=== PATIENT | female | born 1945 | race Caucasian/White ===

== ENCOUNTER → 2016-04-10 | Outpatient (CLI) | payer OTHER ==
[~2016-04-10] MED LIST: ACET-1311 PO; CARB0.5D OPB; CPR500 PO; HYDR-5688 PO; METH4PAK PO
--- NOTE | 2016-04-10 15:10 | DIAGNOSTIC IMAGING REPORT ---
RIGHT RIBS UNILATERAL WITH PA CHEST CLINICAL HISTORY: Right-sided rib pain. COMPARISON STUDY: Chest radiograph May 23, 2015. FINDINGS: There is no pneumothorax or pleural effusion. Lungs are clear. Cardiac size is normal. Mediastinal contours are normal. There are cholecystectomy clips. No acute right rib fractures are identified by radiography. There are several old anterior right-sided rib fractures. IMPRESSION: No pneumothorax. No acute right rib fractures. Several old anterior right-sided rib fractures. Electronically signed by: Mateo Jackson M.D. 04/10/2016 3:08 PM Dictated Date/Time: 04/10/2016 3:03 PM
[2016-04-10 18:27] LABS: URINE APPEARANCE CLEAR (CLEAR); URINE BILIRUBIN NEG (NEG); URINE COLOR YELLOW; URINE NITRITE NEG (NEG); URINE PH 6.5 (4.5-7.5); URINE SPECIFIC GRAVITY 1.013 (1.000-1.030); UROBILINOGEN NEG (NEG)
[2016-04-10 18:32] LABS: MANUAL MICROSCOPIC REQUIRED? NO; REVIEW REQ? YES
== END | disposition home or self-care (01) ==
LOC: C.RADBC 14:37
PROVIDERS: ATTEND Internal Medicine Geriatric Medicine
DX: R07.81 Pleurodynia (principal); N20.0 Calculus of kidney; R10.9 Unspecified abdominal pain; M54.5 Low back pain

== ENCOUNTER → 2016-04-25 | Outpatient (CLI) | payer OTHER ==
[2016-04-25 13:41] LABS: URINE APPEARANCE CLEAR (CLEAR); URINE BILIRUBIN NEG (NEG); URINE COLOR YELLOW; URINE NITRITE NEG (NEG); URINE SPECIFIC GRAVITY 1.015 (1.000-1.030); UROBILINOGEN NEG (NEG)
[2016-04-25 13:54] LABS: MANUAL MICROSCOPIC REQUIRED? NO; REVIEW REQ? NO
== END | disposition home or self-care (01) ==
LOC: C.LABBC 09:38
PROVIDERS: ATTEND Internal Medicine Geriatric Medicine
DX: N20.0 Calculus of kidney (principal); R10.9 Unspecified abdominal pain; R39.15 Urgency of urination

== ENCOUNTER → 2016-07-04 | Outpatient (CLI) | payer OTHER ==
[~2016-07-04] MED LIST changes: -CPR500 PO; -HYDR-5688 PO
[2016-07-04 14:53] LABS: URINE APPEARANCE CLEAR (CLEAR); URINE BILIRUBIN NEG (NEG); URINE COLOR YELLOW; URINE NITRITE NEG (NEG); URINE SPECIFIC GRAVITY 1.018 (1.000-1.030); UROBILINOGEN NEG (NEG)
[2016-07-04 15:04] LABS: MANUAL MICROSCOPIC REQUIRED? NO; REVIEW REQ? NO
== END | disposition home or self-care (01) ==
LOC: C.LABBC 10:36
PROVIDERS: ATTEND Internal Medicine
DX: R10.9 Unspecified abdominal pain (principal); R39.15 Urgency of urination; M54.5 Low back pain

== ENCOUNTER → 2016-09-11 | Outpatient (CLI) | payer OTHER ==
[~2016-09-11] MED LIST changes: -METH4PAK PO
[2016-09-11 17:21] LABS: ESTIMATED AVERAGE GLUCOSE 117 mg/dl; HA1C FLAG Normal (Normal)
[2016-09-11 17:23] LABS: ALB/GLOB RATIO 0.9 (0.9-2); ALT/SGPT 15 U/L (12-78); AST/SGOT 11 U/L (15-37); BLOOD UREA NITROGEN 14 mg/dl (7-18); BUN/CREATININE RATIO 24.1 (10-20); CALCIUM 9.7 mg/dl (8.5-10.1); CARBON DIOXIDE 27 mmol/L (21-32); CHLORIDE 109 mmol/L (98-107); CREATININE 0.59 mg/dl (0.60-1.20); GLUCOSE 86 mg/dl (70-99); POTASSIUM 4.2 mmol/L (3.5-5.1); SODIUM 142 mmol/L (136-145)
[2016-09-11 17:27] LABS: BASO % 0.6 %; BASO ABS # 0.02 K/uL (0-0.2); COMPLETE YES; EOS % 2.2 %; HEMATOCRIT 40.7 % (37-47); LYMPH % 25.5 %; LYMPH ABS # 0.91 K/uL (1.2-3.4); MEAN CELL VOLUME 88.9 fL (80-100); MEAN CORPUSCULAR HEMOGLOBIN 28.2 pg (25-34); MEAN CORPUSCULAR HGB CONC 31.7 g/dl (32-36); MEAN PLATELET VOLUME 9.4 fL (7.4-10.4); MONO % 10.6 %; NEUT % 61.1 %; PLATELET COUNT 216 K/uL (130-400); RED BLOOD COUNT 4.58 M/uL (4.2-5.4); WHITE BLOOD COUNT 3.57 K/uL (4.8-10.8)
[2016-09-11 17:35] LABS: ALKALINE PHOSPHATASE 98 U/L (45-117)
== END | disposition home or self-care (01) ==
LOC: C.LABBC 13:47
PROVIDERS: ATTEND Internal Medicine
DX: M35.00 Sjogren syndrome, unspecified (principal)

== ENCOUNTER 2016-09-17 17:50 | Emergency (ER) | payer OTHER ==
[~2016-09-17] VITALS: Ht 157.5 cm; Wt 72.8 kg
[2016-09-17 17:56] VITALS: TEMP 36.7; Ht 157.5 cm; Wt 72.8 kg
[2016-09-17] MEDS ORDERED: METH4PAK PO (18:34)
[2016-09-17] MEDS ORDERED: ASPIRIN 81 MG CHEW PO STA (18:54)
[2016-09-17] MEDS ORDERED: DEXTROSE 50% 50 ML SYR IV PRN (19:15)
[2016-09-17] MEDS ORDERED: GLUCOSE 10 TABS/TUBE PO PRN (19:15)
[2016-09-17] MEDS ORDERED: GLUCAGON FOR INJ 1 MG VIAL SQ PRN (19:15)
[2016-09-17] MEDS ORDERED: GLUCOSE 40% GEL 15 GM TUBE PO PRN (19:15)
--- NOTE | 2016-09-17 19:15 | EMERGENCY ROOM VISIT NOTE ---
History Report prepared by Freddie: Dinorah Feliciano Under the Supervision of: Dr. Juany Anne M.D. First contact with patient: 18:13 Chief Complaint: CHEST PAIN Stated Complaint: PAIN IN CHEST History of Present Illness The patient is a 71 year old female who presents to the Emergency Room with complaints of persistent right sided chest pain that began several days ago. She currently rates her discomfort as a 9/10 in severity. The patient states that her chest pain has been worsening and describes her pain as a shooting pain. She states that she has noticed pain in her right neck. The patient reports back pain, but notes that it has been going on for several months. She states that she has been experiencing abdominal pain. The patient denies the pain radiating into her jaw. She states that her last bowel movement was today , noting that it was a hard bowel movement. The patient states that she took Prednisone today. Source of History: patient Onset: several days ago Position: chest (right) Symptom Intensity: 9/10 Quality: other (shooting) Timing: worsening, other (persistent) Associated Symptoms: + neck pain (right side), + abdominal pain, + back pain Review of Systems See HPI for pertinent positives & negatives. A total of 10 systems reviewed and were otherwise negative. Past Medical & Surgical Medical Problems: (1) Atrial fibrillation (2) Diabetes (3) Diverticulosis (4) High cholesterol (5) Hypertension (6) Hyperthyroidism Surgical Problems: (1) H/O abdominal hysterectomy (2) Hx of cholecystectomy Family History Cancer Hypertension Social History Smoking Status: Former Smoker Alcohol Use: none Drug Use: none Marital Status: Housing Status: lives with significant other Occupation Status: unemployed Current/Historical Medications Scheduled Carboxymethylcellulose Sodium (Refresh Plus), 1 DROP OPB QID Methylprednisolone (Medrol Dosepak), 1 PKT PO UD Scheduled PRN Acetaminophen (Tylenol), 325-650 MG PO UD PRN for Pain Allergies Coded Allergies: Azithromycin (Verified Allergy, Unknown, 02/04/15) Cevimeline (Verified Allergy, Unknown, UNKNOWN, 02/04/15) Escitalopram (Verified Allergy, Unknown, UNKNOWN, 02/04/15) Penicillins (Verified Allergy, Unknown, 02/04/15) Prednisone (Verified Allergy, Unknown, UNKNOWN, 02/04/15) Sulfa Antibiotics (Verified Allergy, Unknown, Rash, Acute renal failure, 02/04/15) Sulindac (Verified Allergy, Unknown, 02/04/15) Tolterodine (Verified Allergy, Unknown, UNKNOWN, 02/04/15) Physical Exam Vital Signs Date Time Temp Pulse Resp B/P (MAP) Pulse Ox O2 Delivery O2 Flow Rate FiO2 09/17/16 20:41 65 18 151/78 96 Room Air 09/17/16 20:08 66 18 209/118 96 Room Air 09/17/16 19:04 71 09/17/16 18:17 96 Room Air 09/17/16 17:56 36.7 89 18 168/88 96 Room Air Physical Exam Vital signs reviewed. General: Elderly. Well-appearing female, in no significant distress. HEENT: No scleral icterus, PERRLA, neck supple. Atraumatic. Chest: Marked tenderness to right anterior chest. Cardiovascular: Regular rate and rhythm, no extra sounds. Pulmonary: Clear to auscultation bilaterally, normal work of breathing. Abdomen: Soft, nontender, nondistended, positive bowel sounds. Musculoskeletal: Atraumatic, no peripheral edema. Markedly tender to palpation of the right chest wall. Neurologic: Patient awake alert and oriented x 3, full strength in all 4 extremities. Cranial nerves 2 through 12 grossly intact. Skin: Warm, dry, no rash Medical Decision & Procedures ER Provider Diagnostic Interpretation: X-ray results as stated below per interpretation by me and the radiologist: CHEST ONE VIEW PORTABLE CLINICAL HISTORY: CP dyspnea COMPARISON STUDY: 05/23/2015 FINDINGS: The bones soft tissues and hemidiaphragms are normal. The cardiomediastinal silhouette is normal. The lungs are clear. The pulmonary vasculature is normal. IMPRESSION: Negative chest. The above report was generated using voice recognition software. It may contain grammatical, syntax or spelling errors. Electronically signed by: Guicho Baeza M.D. 09/17/2016 7:20 PM Dictated Date/Time: 09/17/2016 7:20 PM Laboratory Results 09/17/16 18:10 Red Blood Count 4.48, Mean Corpuscular Volume 88.6, Mean Corpuscular Hemoglobin 29.7, Mean Corpuscular Hemoglobin Concent 33.5, Mean Platelet Volume 9.9, Neutrophils (%) (Auto) 76.8, Lymphocytes (%) (Auto) 18.1, Monocytes (%) (Auto) 4.9, Eosinophils (%) (Auto) 0.0, Basophils (%) (Auto) 0.0, Neutrophils # (Auto) 4.06, Lymphocytes # (Auto) 0.96, Monocytes # (Auto) 0.26, Eosinophils # (Auto) 0.00, Basophils # (Auto) 0.00 09/17/16 18:10 Test 09/17/16 18:10 09/17/16 20:24 White Blood Count 5.29 K/uL (4.8-10.8) Red Blood Count 4.48 M/uL (4.2-5.4) Hemoglobin 13.3 g/dL (12.0-16.0) Hematocrit 39.7 % (37-47) Mean Corpuscular Volume 88.6 fL (80-100) Mean Corpuscular Hemoglobin 29.7 pg (25-34) Mean Corpuscular Hemoglobin Concent 33.5 g/dl (32-36) Platelet Count 249 K/uL (130-400) Mean Platelet Volume 9.9 fL (7.4-10.4) Neutrophils (%) (Auto) 76.8 % Lymphocytes (%) (Auto) 18.1 % Monocytes (%) (Auto) 4.9 % Eosinophils (%) (Auto) 0.0 % Basophils (%) (Auto) 0.0 % Neutrophils # (Auto) 4.06 K/uL (1.4-6.5) Lymphocytes # (Auto) 0.96 K/uL (1.2-3.4) Monocytes # (Auto) 0.26 K/uL (0.11-0.59) Eosinophils # (Auto) 0.00 K/uL (0-0.5) Basophils # (Auto) 0.00 K/uL (0-0.2) RDW Standard Deviation 44.7 fL (36.4-46.3) RDW Coefficient of Variation 13.7 % (11.5-14.5) Immature Granulocyte % (Auto) 0.2 % Immature Granulocyte # (Auto) 0.01 K/uL (0.00-0.02) Anion Gap 7.0 mmol/L (3-11) Est Creatinine Clear Calc Drug Dose 74.2 ml/min Estimated GFR () 103.3 Estimated GFR (Non- 89.2 BUN/Creatinine Ratio 24.7 (10-20) Calcium Level 9.2 mg/dl (8.5-10.1) Magnesium Level 2.1 mg/dl (1.8-2.4) Total Bilirubin 0.3 mg/dl (0.2-1) Direct Bilirubin < 0.1 mg/dl (0-0.2) Aspartate Amino Transf (AST/SGOT) 11 U/L (15-37) Alanine Aminotransferase (ALT/SGPT) 16 U/L (12-78) Alkaline Phosphatase 90 U/L (45-117) Total Creatine Kinase 23 U/L (26-192) Creatine Kinase MB 0.6 ng/ml (0.5-3.6) Creatine Kinase MB Ratio 2.6 (0-3.0) Total Protein 7.5 gm/dl (6.4-8.2) Albumin 3.6 gm/dl (3.4-5.0) Bedside Troponin I < 0.030 ng/ml (0-0.045) Laboratory results per my review. Medications Administered Medications (Trade) Dose Ordered Sig/Valeria Route Start Time Stop Time Status Last Admin Dose Admin Aspirin (Aspirin Chew) 324 mg NOW STAT PO 09/17/16 18:54 09/17/16 18:59 DC 09/17/16 19:03 324 MG Lidocaine HCl (Viscous Lidocaine 2% Soln) 10 ml NOW STAT PO 09/17/16 19:49 09/17/16 19:50 DC 09/17/16 20:01 10 ML Al Hydroxide/Mg Hydroxide (Maalox Susp) 30 ml NOW STAT PO 09/17/16 19:49 09/17/16 19:50 DC 09/17/16 20:01 30 ML ECG Indication: chest pain Rate (beats per minute): 79 Rhythm: normal sinus Findings: RBBB, no ectopy, other (repolarization abnormality in anterior leads) ED Course 1848: Past medical records reviewed. The patient was evaluated in room A11B. A complete history and physical examination was performed. 1853: Ordered Aspirin 324 mg PO. 1948: Ordered Maalox Susp 30 ml PO, Lidocaine HCl 10 ml PO. 2100: I reevaluated the patient and she is resting. I discussed all the exam findings with her and I discussed the treatment plan. She verbalized complete understanding and agreement. She is ready to go home. Medical Decision Differential diagnoses includes acute coronary syndrome, pulmonary embolus, aortic dissection, musculoskeletal pain, pneumonia, pleural effusion, pneumothorax, gastritis, peptic ulcer disease. This pt was evaluated and appeared to be in no distress. IV access was obtained and lab work was drawn. Pt was placed on the process inspector. This pt was evaluated and appeared to be in no distress. The pt had many complaints and changed the timeline of her pain and symptoms. It seems she settled on 3 days of worsening pain, hurts when she moved. Pt was very tender to palpation. BP is noted to be elevated, but the pt was a bit agitated and did not like the BP cuff. She was given ASA orally and troponins were performed x2. Cardiac enzymes are negative. EKG reveals a RBBB without ectopy or ischemia. CXR is negative. Pt was d/c to f/u with PCP this week for BP recheck and reevaluation of CP. She will continue meds as prescribed and return to the ED for worsening of symptoms or any medical concerns. Medication Reconcilliation Current Medication List: was personally reviewed by me Blood Pressure Screening Patient's blood pressure: Elevated blood pressure Blood pressure disposition: Referred to PCP Impression Primary Impression: Chest wall pain Additional Impression: Hypertension Scribe Attestation The scribe's documentation has been prepared under my direction and personally reviewed by me in its entirety. I confirm that the note above accurately reflects all work, treatment, procedures, and medical decision making performed by me. Departure Information Dispostion Home / Self-Care Referrals Juanito Leonard M.D. (PCP) Forms HOME CARE DOCUMENTATION FORM, IMPORTANT VISIT INFORMATION Patient Instructions My [facility] [employer] Additional Instructions Diagnosis: Chest wall pain, hypertension Tylenol 650 mg every 6 hours as needed for pain. Follow-up with your physician within the next several days, have her blood pressure rechecked. Return to the emergency department for worsening of symptoms or any medical concerns. Problem Qualifiers
--- NOTE | 2016-09-17 19:22 | DIAGNOSTIC IMAGING REPORT ---
CHEST ONE VIEW PORTABLE CLINICAL HISTORY: CP dyspnea COMPARISON STUDY: 05/23/2015 FINDINGS: The bones soft tissues and hemidiaphragms are normal. The cardiomediastinal silhouette is normal. The lungs are clear. The pulmonary vasculature is normal. IMPRESSION: Negative chest. The above report was generated using voice recognition software. It may contain grammatical, syntax or spelling errors. Electronically signed by: Guicho Baeza M.D. 09/17/2016 7:20 PM Dictated Date/Time: 09/17/2016 7:20 PM
[2016-09-17 19:23] LABS: COMPLETE YES; HEMATOCRIT 39.7 % (37-47); IG% 0.2 %; LYMPH % 18.1 %; LYMPH ABS # 0.96 K/uL (1.2-3.4); MEAN CELL VOLUME 88.6 fL (80-100); MEAN CORPUSCULAR HEMOGLOBIN 29.7 pg (25-34); MEAN CORPUSCULAR HGB CONC 33.5 g/dl (32-36); MEAN PLATELET VOLUME 9.9 fL (7.4-10.4); MONO % 4.9 %; NEUT % 76.8 %; PLATELET COUNT 249 K/uL (130-400); RED BLOOD COUNT 4.48 M/uL (4.2-5.4); WHITE BLOOD COUNT 5.29 K/uL (4.8-10.8)
[2016-09-17 19:33] LABS: ALT/SGPT 16 U/L (12-78); BLOOD UREA NITROGEN 16 mg/dl (7-18); BUN/CREATININE RATIO 24.7 (10-20); CALCIUM 9.2 mg/dl (8.5-10.1); CARBON DIOXIDE 25 mmol/L (21-32); CHLORIDE 109 mmol/L (98-107); CREATININE 0.64 mg/dl (0.60-1.20); GLUCOSE 116 mg/dl (70-99); MAGNESIUM 2.1 mg/dl (1.8-2.4); POTASSIUM 3.8 mmol/L (3.5-5.1); SODIUM 141 mmol/L (136-145)
[2016-09-17 19:38] LABS: ALKALINE PHOSPHATASE 90 U/L (45-117); AST/SGOT 11 U/L (15-37); CKMB/CK RATIO 2.6 (0-3.0)
[2016-09-17] MEDS ORDERED: ALUMINUM/MAGNESIUM SUSP 30 ML UDC PO STA (19:49)
[2016-09-17] MEDS ORDERED: LIDOCAINE HCL 2% VISC SOLN 20 ML UDC PO STA (19:49)
[2016-09-17] MEDS ORDERED: CARB0.5D OPB (20:20)
[2016-09-17] MEDS ORDERED: ACET-1311 PO (20:20)
[2016-09-17 20:41] VITALS: BP 151/78; PULSE 65; O2SAT 96
[2016-09-17] MEDS ORDERED: INSULIN ASPART 100 UNITS/ML 3 ML PEN SC SCH (21:00)
== END 2016-09-17 21:12 | disposition home or self-care (01) ==
LOC: C.EDB 17:51 → C.EDA 21:12
DX: R07.89 Other chest pain (principal); I10 Essential (primary) hypertension; I48.91 Unspecified atrial fibrillation; E11.9 Type 2 diabetes mellitus without complications; E78.00 Pure hypercholesterolemia, unspecified; E05.90 Thyrotoxicosis, unspecified without thyrotoxic crisis or storm; Z90.710 Acquired absence of both cervix and uterus; Z90.49 Acquired absence of other specified parts of digestive tract; Z80.9 Family history of malignant neoplasm, unspecified; Z82.49 Family history of ischemic heart disease and other diseases of the circulatory system; Z87.891 Personal history of nicotine dependence; Z79.899 Other long term (current) drug therapy

== ENCOUNTER → 2016-12-16 | Outpatient (CLI) | payer OTHER ==
[~2016-12-16] MED LIST changes: +METH4PAK PO
== END | disposition home or self-care (01) ==
LOC: C.LAB1850 10:14
PROVIDERS: ATTEND Internal Medicine Rheumatology
DX: M35.00 Sjogren syndrome, unspecified (principal); R89.4 Abnormal immunological findings in specimens from other organs, systems and tissues

== ENCOUNTER → 2017-09-23 | Outpatient (CLI) | payer OTHER ==
[2017-09-23 13:05] LABS: BASO % 0.7 %; BASO ABS # 0.02 K/uL (0-0.2); EOS % 1.4 %; EOS ABS # 0.04 K/uL (0-0.5); HEMATOCRIT 42.1 % (37-47); HEMOGLOBIN 13.5 g/dL (12.0-16.0); LYMPH % 27.4 %; LYMPH ABS # 0.76 K/uL (1.2-3.4); MEAN CELL VOLUME 90.3 fL (80-100); MEAN CORPUSCULAR HGB CONC 32.1 g/dl (32-36); MEAN PLATELET VOLUME 10.4 fL (7.4-10.4); MONO % 7.2 %; NEUT % 63.3 %; NEUT ABS # 1.75 K/uL (1.4-6.5); PLATELET COUNT 210 K/uL (130-400); RED CELL DISTRIBUTION WIDTH SD 45.7 fL (36.4-46.3); WHITE BLOOD COUNT 2.77 K/uL (4.8-10.8)
[2017-09-23 13:29] LABS: HEMOGLOBIN A1C 5.7 % (4.5-5.6)
[2017-09-23 14:23] LABS: ALBUMIN 3.5 gm/dl (3.4-5.0); ALKALINE PHOSPHATASE 80 U/L (45-117); ALT/SGPT 11 U/L (12-78); AST/SGOT 9 U/L (15-37); BLOOD UREA NITROGEN 11 mg/dl (7-18); CALCIUM 8.7 mg/dl (8.5-10.1); CARBON DIOXIDE 26 mmol/L (21-32); CHOLESTEROL 147 mg/dl (0-200); CREATININE 0.61 mg/dl (0.60-1.20); GLUCOSE 80 mg/dl (70-99); LDL CHOLESTEROL CALCULATED 86 mg/dl; SODIUM 141 mmol/L (136-145); TOTAL PROTEIN 7.3 gm/dl (6.4-8.2)
== END | disposition home or self-care (01) ==
LOC: C.LABBC 09:08
PROVIDERS: ATTEND Internal Medicine
DX: M35.00 Sjogren syndrome, unspecified (principal); K44.9 Diaphragmatic hernia without obstruction or gangrene; M15.9 Polyosteoarthritis, unspecified; R73.01 Impaired fasting glucose; I10 Essential (primary) hypertension; D47.2 Monoclonal gammopathy; M54.5 Low back pain; R10.2 Pelvic and perineal pain

== ENCOUNTER → 2017-10-16 | Outpatient (CLI) | payer OTHER ==
[~2017-10-16] MED LIST changes: +DVN80 PO; -METH4PAK PO; +MOUTLIQ80 PO
--- NOTE | 2017-10-16 13:46 | DIAGNOSTIC IMAGING REPORT ---
CHEST 2 VIEWS ROUTINE CLINICAL HISTORY: 72 years-old Female presenting with preoperative assessment. TECHNIQUE: PA and lateral views of the chest were obtained. COMPARISON: 09/17/2016. FINDINGS: Atherosclerosis of the aortic arch. Cardiac silhouette normal in size. Mild hyperinflation. Lungs and pleural spaces clear. Suspected osteopenia. Cholecystectomy clips noted. IMPRESSION: 1. Suspected underlying emphysema. No other convincing evidence of acute cardiopulmonary disease. Electronically signed by: Juanito Salguero M.D. 10/16/2017 1:45 PM Dictated Date/Time: 10/16/2017 1:43 PM
[2017-10-16 14:00] LABS: BASO % 0.6 %; BASO ABS # 0.02 K/uL (0-0.2); EOS % 2.2 %; EOS ABS # 0.07 K/uL (0-0.5); HEMATOCRIT 39.9 % (37-47); HEMOGLOBIN 12.9 g/dL (12.0-16.0); IG# 0.01 K/uL (0.00-0.02); LYMPH % 29.1 %; LYMPH ABS # 0.93 K/uL (1.2-3.4); MEAN CELL VOLUME 90.1 fL (80-100); MEAN CORPUSCULAR HEMOGLOBIN 29.1 pg (25-34); MEAN CORPUSCULAR HGB CONC 32.3 g/dl (32-36); MEAN PLATELET VOLUME 9.6 fL (7.4-10.4); MONO % 8.4 %; MONO ABS # 0.27 K/uL (0.11-0.59); NEUT % 59.4 %; PLATELET COUNT 171 K/uL (130-400); RED CELL DISTRIBUTION WIDTH CV 13.9 % (11.5-14.5); RED CELL DISTRIBUTION WIDTH SD 45.9 fL (36.4-46.3)
[2017-10-16 14:06] LABS: INR 0.9 (0.9-1.1); PTT PATIENT 25.2 SECONDS (21.0-31.0)
== END | disposition home or self-care (01) ==
LOC: C.CPL 12:00
PROVIDERS: ATTEND Orthopaedic Surgery
DX: Z01.810 Encounter for preprocedural cardiovascular examination (principal); Z01.811 Encounter for preprocedural respiratory examination; Z01.812 Encounter for preprocedural laboratory examination; I45.10 Unspecified right bundle-branch block